=== PATIENT | female | born 1995 | race African-American/Black ===

== ENCOUNTER 2023-12-29 15:00 | Emergency (ER) | payer MEDICAID ==
[~2023-12-29] VITALS: Ht 167.6 cm; Wt 90.9 kg
[2023-12-29 16:08] VITALS: BP 107/76; PULSE 125; RESP 16; TEMP 101.1
[2023-12-29] MEDS ORDERED: ACETAMINOPHEN 500 MG TABLET PO ONE (16:30)
[2023-12-29 17:44] LABS: INFLUENZA A-RTPCR,COMBO NEGATIVE (NEGATIVE); INFLUENZA B-RTPCR,COMBO NEGATIVE (NEGATIVE); RESPIRATORY SYNCYTIAL VRS-PCR NEGATIVE (NEGATIVE); SARS COVID19 RTPCR, COMBO NEGATIVE (NEGATIVE)
[2023-12-29] MEDS ORDERED: OSEL75 PO (18:07)
== END 2023-12-29 19:04 | disposition home or self-care (01) ==
LOC: EMS 15:10
DX: J10.1 Influenza due to other identified influenza virus with other respiratory manifestations (principal); J45.909 Unspecified asthma, uncomplicated; Z20.822 Contact with and (suspected) exposure to COVID-19
CPT/HCPCS: 99284; 0241U; 71045